=== PATIENT | female | born 1945 | race Caucasian/White ===

== ENCOUNTER 2017-10-21 13:03 | Outpatient (CLI) | payer MEDICARE, BC ==
--- NOTE | 2017-10-21 14:49 | ULT ---
RIGHT LOWER EXTREMITY VENOUS DOPPLER WITH SPECTRAL ANALYSIS AND COLOR EVALUATION: DATE: 10/21/17. HISTORY: Chronic bilateral lower extremity edema. New-onset right calf pain and redness with onset of symptom s on Wednesday. FINDINGS: Pérez scale, color flow, Doppler evaluation, and spectral analysis of the right lower extremity venous structures is performed with 2D imaging. The right lower extremity common femoral, superficial femo ral, popliteal, posterior tibial, most proximal greater saphenous and profunda femoral veins are imag ed. There is normal lumen compressibility, flow, and augmentation of the visualized deep venous structure s of the right lower extremity. IMPRESSION: No evidence of a deep vein thrombosis involving the visualized deep venous structures right lower ext remity. POS: YANDEL
== END 2017-10-21 13:04 | disposition home or self-care (01) ==
LOC: ULT 13:03
PROVIDERS: ATTEND Family Medicine
DX: I67.9 Cerebrovascular disease, unspecified (principal)

== ENCOUNTER 2017-11-11 10:08 | Outpatient (CLI) | payer MEDICARE, BC ==
--- NOTE | 2017-11-11 16:34 | HP ---
DATE OF SERVICE: 11/11/2017 HISTORY OF PRESENT ILLNESS: Ms. Smitha Rosales is a very pleasant 72- year-old who [facility] for evaluation of a lesion of the left medial lower leg subsequent to a Mohs procedure. The patient states that an area of her left medial lower leg was biopsied multiple times and returned "atypical pigmentation." Today, the patient reports erythema surrounding the surgical site. The patient states that simultaneously she underwent a Mohs procedure for a lesion of the skin of her right upper lip. Ms. Rosales reports erythema and edema of both lower extremities, which has been present for 2-3 years. She also states she has scaling of the skin of her right and left lower legs. PAST MEDICAL HISTORY: 1. Coronary artery disease. 2. Hypertension. 3. History of intracerebral bleed. 4. Osteoarthritis. 5. History of hypothyroidism. 6. History of cardiomyopathy prior to transplant. 7. History of rectal carcinoid status post removal. 8. Sigmoid diverticular disease. 9. History of TIA prior to transplant. PAST SURGICAL HISTORY: 1. Cardiac transplantation. 2. Cholecystectomy. 3. Skin carcinoma removal from the face x2. 4. Maupin teeth extraction. 5. Laparoscopy, lysis of adhesions, and bilateral salpingo-oophorectomy. 6. Incarcerated ventral hernia repair with mesh. 7. Cataract surgery of left eye. 8. Laparoscopic repair of recurrent ventral incisional hernia. MEDICATIONS: 1. Sirolimus. 2. Lasix. 3. Clonidine. 4. Aspirin. 5. Norvasc. 6. Mycophenolate mofetil. 7. Gemfibrozil. 8. Lipitor. 9. Bactrim single strength. ALLERGIES: DARVON, DARVOCET. SOCIAL HISTORY: Significant for tobacco use of 1 pack of cigarettes per day for 40 years. The patient states that she stopped smoking on 08/18/2000. Social history is negative for ETOH use. FAMILY HISTORY: Significant for coronary artery disease. The patient states that her mother and 4 brothers were all diagnosed with coronary artery disease. Family history is also significant for diabetes mellitus. The patient states that her grandfather was diagnosed with diabetes mellitus. PHYSICAL EXAMINATION: VITAL SIGNS: Temperature 97.7, pulse 105, respirations 16, blood pressure 117/ 83. GENERAL: A 72-year-old female sitting on chair in examination room in no acute distress. HEENT: Normocephalic, atraumatic. NECK: No nuchal rigidity. CHEST: Clear to auscultation. CARDIAC: Regular rate and rhythm. ABDOMEN: Soft. EXTREMITIES: No open wounds are present over the right or left lower leg. Edema and erythema of the right and left lower legs are present. The erythema of the right and left lower legs appears to be secondary to stasis changes as opposed to an infectious process. A dorsalis pedis pulse is palpable on the left. A posterior tibial pulse is palpable on the right. ASSESSMENT AND PLAN: 1. Venous peripheral insufficiency. The patient has been reassured that the lesion of the left medial lower leg subsequent to her Mohs procedure is consistent with a scar. After discussion of the options for treatment of lower extremity edema secondary to venous peripheral insufficiency, the patient wishes to be evaluated for venous ablation. Arrangements will be made for evaluation for venous ablation on the right and the left for Ms. Rosales. She will return to the [facility] as needed after evaluation and any necessary treatment is complete. Ms. Rosales understands and is in agreement with the preceding treatment plan. 2. Coronary artery disease. 3. Hypertension. 4. History of intracerebral bleed. 5. Osteoarthritis. 6. History of hypothyroidism. 7. History of cardiomyopathy prior to transplant. 8. History of rectal carcinoid status post removal. 9. Sigmoid diverticular disease. 10. History of transient ischemic attack prior to transplant. [facility]
== END 2017-11-11 10:09 | disposition home or self-care (01) ==
LOC: WCC 10:08
PROVIDERS: ATTEND Family Medicine
DX: I87.2 Venous insufficiency (chronic) (peripheral) (principal); L98.9 Disorder of the skin and subcutaneous tissue, unspecified; I25.10 Atherosclerotic heart disease of native coronary artery without angina pectoris; I10 Essential (primary) hypertension; M19.90 Unspecified osteoarthritis, unspecified site; Z86.39 Personal history of other endocrine, nutritional and metabolic disease; Z86.79 Personal history of other diseases of the circulatory system; K57.30 Diverticulosis of large intestine without perforation or abscess without bleeding; Z86.73 Personal history of transient ischemic attack (TIA), and cerebral infarction without residual deficits
CPT/HCPCS: 97139; G0463; 99203

== ENCOUNTER 2017-12-21 12:31 | Outpatient (CLI) | payer MEDICARE, BC | END 2017-12-21 12:32 | disposition home or self-care (01) | LOC: BICMAMMO 12:31 | PROVIDERS: ATTEND Family Medicine | DX: Z12.31 Encounter for screening mammogram for malignant neoplasm of breast (principal); Z80.3 Family history of malignant neoplasm of breast | CPT/HCPCS: 77063; 77067 ==

== ENCOUNTER 2018-05-17 06:23 | Day surgery (SDC) | payer MEDICARE, BC ==
--- NOTE | 2018-05-17 03:11 | HP ---
DATE OF ADMISSION: 05/17/2018 HISTORY OF PRESENT ILLNESS: This is a 72-year-old female with history of colon polyps with polypectomy. The last one was done about 5 years ago. She has history of carcinoid tumor removed f rom the colon in the past. At the present time, Ms. Rosales has no specific GI symptoms. Her meka ls are regular. No abdominal pain, no rectal bleeding. She comes in for colonoscopy because of hist ory of colon polyp. ALLERGIES: Multiple including HYDROCODONE, DARVON, TRAMADOL. SOCIAL HISTORY: The patient does not smoke or drink alcohol. PAST MEDICAL HISTORY: 1. Acute myocardial infarction, status post heart transplant more than 10 years ago. 2. Hypertension. 3. Hyperlipidemia. 4. Carcinoid tumor of colon. PHYSICAL EXAMINATION: VITAL SIGNS: Pulse is 70, blood pressure 130/70. HEENT: Conjunctivae clear. CARDIOVASCULAR: First and second heart sounds normal. LUNGS: Clear to auscultation. ABDOMEN: Soft to palpate. No organomegaly. No tenderness. No masses. ADMITTING DIAGNOSIS: Colon polyp. PLAN: Colonoscopy.
[2018-05-17] MEDS ORDERED: PROPOFOL 200 MG/20 ML VIAL ONE (13:16)
[2018-05-17] MEDS ORDERED: Lidocaine 1% PF 5 ML VIAL ONE (13:16)
--- NOTE | 2018-05-18 14:11 | OP ---
DATE OF SURGERY: 05/17/2018 OPERATIVE PROCEDURE: Colonoscopy. PREOPERATIVE DIAGNOSES: A 72-year-old female with history of colon polyp with polypectomy. She had a carcinoid tumor removal in the past. She comes for a followup colonoscopy. POSTOPERATIVE DIAGNOSES: 1. Sigmoid diverticular disease. 2. Hemorrhoids. Otherwise, normal colonoscopy. PROCEDURE NOTE: The patient was placed on her left lateral position and was given sedation by Anesth esia Department. A rectal exam was done, before scope was advanced into the rectum. No lesions felt on rectal exam. A Pentax video colonoscopy was introduced into the rectum and advanced all the way into the cecum. The prep was very good. The mucosa appeared normal. The appendiceal orifice, ileoc ecal valve, and cecum, no pathology seen. The right colon mucosa seems very friable and edematous an d erythematous. Biopsy obtained from the area. The hepatic flexure, transverse colon, splenic flexu re, descending colon, no pathology seen. The sigmoid colon showed scattered diverticulosis. The ___ _ was very large mouthed. The rectum showed hemorrhoids. DISCHARGE PLANNING: This is a 72-year-old female who came in for a colonoscopy because of previous polypectomy. She underwent colonoscopy and was found to have hemorrhoids and sigmoid divert iculosis. She had biopsy of right colon because of friable erythematous mucosa. DISCHARGE RECOMMENDATIONS: 1. Patient advised to call me, she does have abdominal pain, hematochezia. 2. In the absence of any of her symptoms, she will come back to me in 2 weeks.
== END 2018-05-17 10:10 | disposition home or self-care (01) ==
LOC: SDC 06:23
PROVIDERS: ATTEND Internal Medicine Gastroenterology
PROC: 0DJD8ZZ Inspection of Lower Intestinal Tract, Via Natural or Artificial Opening Endoscopic (ICD-10-PCS; principal; 2018-05-17)
PROC: 0DBK8ZX Excision of Ascending Colon, Via Natural or Artificial Opening Endoscopic, Diagnostic (ICD-10-PCS; 2018-05-17)
DX: Z12.11 Encounter for screening for malignant neoplasm of colon (principal); K63.5 Polyp of colon; K57.30 Diverticulosis of large intestine without perforation or abscess without bleeding; K64.9 Unspecified hemorrhoids; I25.2 Old myocardial infarction; I10 Essential (primary) hypertension; E78.5 Hyperlipidemia, unspecified; Z88.5 Allergy status to narcotic agent; Z79.899 Other long term (current) drug therapy
CPT/HCPCS: 88305; J2001; J2704

== ENCOUNTER 2018-08-25 12:46 | Outpatient (CLI) | payer MEDICARE, BC | END 2018-08-25 12:47 | disposition home or self-care (01) | LOC: DTY/OP 12:46 | PROVIDERS: ATTEND Family Medicine | DX: E11.9 Type 2 diabetes mellitus without complications (principal) | CPT/HCPCS: 97802 ==

== ENCOUNTER 2018-11-22 22:26 | Inpatient (IN) | payer MEDICARE, BC ==
[2018-11-22 22:56] LABS: Hemoglobin 14.7 g/dL (12.0-16.0); Mean Corpuscular HGB CONC 32.3 g/dL (32.0-36.0); Mean Corpuscular Hemoglobin 25.7 pg (27.0-31.0); Mean Corpuscular Volume 79.8 fL (78.0-98.0); Mean Platelet Volume 7.9 fL (7.4-10.4); Platelet Count 342 thou/uL (130-400); RBC Distribution Width 13.5 % (11.5-14.5); Red Blood Cell (RBC) Count 5.69 mill/uL (4.20-5.40); White Blood Cell (WBC) Count 18.6 thou/uL (4.8-10.8)
[2018-11-22 23:11] LABS: Band 3 % (5-11); Lymphocytes 2 % (21-51); MDiff Complete? YES; Monocytes 2 % (0-10); Neutrophil 93 % (42-75); Platelet Morphology Comment Appears Adequate; RBC Morphology Normal
--- NOTE | 2018-11-22 23:13 | RAD ---
RADIOGRAPH CHEST 1 VIEW: Date: 11/22/18 Time: 9:44 p.m. HISTORY: 73-year-old female with cough. COMPARISON: 04/12/17. FINDINGS: Again noted is the ectatic and tortuous thoracic aorta, specially the ascending aorta. New finding of curvilinear streaky densities at the left lower lobe, especially at the lateral base, representing e ither subsegmental atelectasis or scar. Another new finding of a patchy focal nodular left infrahilar density measuring approximately 1.5 cm. The rest of the visualized lung pelayo are clear. No cardiom egaly. No pulmonary edema. No pneumothorax. Sternotomy wires again noted. Previously demonstrated arnie eolar infiltrate at right lateral lung base has cleared. IMPRESSION: 1. Left infrahilar focal 1.5 cm nodular density. Possibilities include primary lung cancer versu s early pneumonia. Recommend further evaluation with chest CT, preferably with IV contrast unless con traindicated. 2. Subsegmental atelectasis versus pulmonary scar at left lower lobe. OMER [] POS: YANDEL
[2018-11-22 23:23] LABS: ALT (SGPT) 40 U/L (8-55); AST (SGOT) 69 U/L (5-34); Albumin 3.7 g/dL (3.4-4.8); Alkaline Phosphatase 100 U/L (40-150); Anion Gap 22 mmol/L (10-20); BUN (Urea Nitrogen) 24 mg/dL (9.8-20.1); CK (CPK) 42 U/L (29-168); Calc. Creatinine Clearance 0 mL/min (70-130); Calcium 9.9 mg/dL (7.8-10.44); Carbon Dioxide 18 mmol/L (23-31); Chloride 96 mmol/L (98-107); Estimated GFR-MDRD 62; Globulin 3.7 g/dL (2.4-3.5); Glucose 166 mg/dL (83-110); Protein, Total 7.4 g/dL (6.0-8.3); Sodium 133 mmol/L (136-145)
[2018-11-22 23:25] LABS: Potassium 2.8 mmol/L (3.5-5.1)
[2018-11-22 23:40] LABS: CKMB 1.1 ng/mL (0-6.6)
[2018-11-22] MEDS ORDERED: Ondansetron PF 4 MG/2 ML Vial ONE (23:49)
[2018-11-22] MEDS ORDERED: Dicyclomine 20 MG TAB ONE (23:49)
[2018-11-22 23:55] LABS: Bilirubin Moderate (Negative); Blood, Urine Moderate (Negative); Clarity CLOUDY (Clear); Glucose, Urine (Dipstick) 100 mg/dL (Negative); Leukocyte Trace (Negative); Nitrite Negative (Negative); Protein, Urine (Dipstick) 300 mg/dL (Neg-Trace); Specific Gravity, Urine 1.021 (1.002-1.036)
[2018-11-22 23:57] LABS: Bacteria/HPF None Seen HPF (None Seen); WBC/HPF 21-50 HPF (0-3)
[2018-11-22 23:58] LABS: Hyaline Casts/LPF >50 HYALINE CAST LPF (0-3 Hyaline); Pathc Cast-AUWi Flag 12.79 (0-2.49); Yeast-AUWi Flag 61.3 (0-25.0)
[2018-11-23 00:12] LABS: Other Casts/LPF 0-3 FINELY GRAN LPF (0-3 Hyaline); Yeast-All Forms None Seen HPF (None Seen)
[2018-11-23 00:13] LABS: Renal Epithelial None Seen HPF (0-3); Transitional Epithelial NONE SEEN HPF (0-3)
[2018-11-23] MEDS ORDERED: cefTRIAXone\\ROCEPHIN 1 GM VIAL ONE (01:22)
[2018-11-23] MEDS ORDERED: Aspirin 325 MG TAB ONE (01:25)
[2018-11-23] MEDS ORDERED: Enoxaparin Sodium 80 MG/0.8 ML SYRINGE ONE (01:41)
[2018-11-23] MEDS ORDERED: Azithromycin 500 MG VIAL ONE (01:41)
[2018-11-23] MEDS ORDERED: Ondansetron PF 4 MG/2 ML Vial ONE (02:29)
[2018-11-23 02:34] LABS: Troponin I 0.102 ng/mL (< 0.028)
[2018-11-23 06:10] LABS: Lactic Acid 0.9 mmol/L (0.5-2.2)
[2018-11-23 06:19] LABS: Troponin I 0.139 ng/mL (< 0.028)
--- NOTE | 2018-11-23 08:46 | CT ---
PRELIMINARY REPORT/[facility]/EMERGENTY AFTER-HOURS PROCEDURE CT Chest With Contrast EXAM DATE/TIME: 11/23/2018 12:40 AM CLINICAL HISTORY: 73 years old, female; Signs and symptoms; Cough; Prior surgery; Patient HX: Er 4; Questionable pna vs malignancy on cxr , f75 presents to the ed C/O abd discomfort and nausea onset wednesday. PT. Reports associated with productive cough and weakness due to decr. Appetite. PT. Reports she started 2.5 MG onglyza dm medication on wednesday but stopped taking them on wednesday due to nausea. PT. Denies fever, d enies cp. HX of umbilical hernia and heart transplant. TECHNIQUE: Axial computed tomography images of the chest with intravenous contrast. Coronal reformatted images were created and reviewed. COMPARISON: No relevant prior studies available. FINDINGS: Lungs: Calcified granuloma within the posterior left lower lobe. 5.6 cm focal consolidation within th e left lower lobe, most compatible with pneumonia. Pleural space: Small left pleural effusion with associated posterior atelectasis. Heart: Normal. Aorta: Atherosclerotic disease of the thoracic aorta. Dilation of the distal ascending aorta, measuri ng up to 4.8 cm in maximal diameter. No evidence of leakage or rupture. Lymph nodes: No pathologically-enlarged lymph nodes. Bones/joints: Changes of prior sternotomy. Multilevel thoracic spine degenerative changes. Soft tissues: Normal. Gallbladder and bile ducts: Gallbladder is surgically absent. Spleen: Splenic calcifications, compatible with prior granulomatous disease. Kidneys and ureters: Bilateral simple renal cysts, the largest measuring approximately 4 some meters in diameter. IMPRESSION: 1. 5.6 cm focal consolidation within the left lower lobe, most compatible with pneumonia. Recommend f ollowup. 2. Dilation of the distal ascending aorta, measuring up to 4.8 cm in maximal diameter. No evidence of leakage or rupture. Thank you for allowing us to participate in the care of your patient. Dictated and Authenticated by: Adebayo Daly MD 11/23/2018 1:07 AM Central Time ([place] & [place]) FINAL REPORT CHEST CT WITH CONTRAST: HISTORY: Pneumonia versus mass in the left perihilar region, noted n recent radiograph. COMPARISON: None. CORRELATION: Single view chest 11/22/2018. TECHNIQUE: Chest CT is performed with contrast. Coronal reformatted images are submitted. FINDINGS: This report is in agreement with the preliminary report by [facility]. There is consolidation with air bron chograms in the left lower lobe, most compatible with pneumonia. Continued surveillance and followup is recommended. There is dilatation of the ascending aorta as described in the preliminary report b y [facility]. No evidence of aneurysm or rupture. Multiple hypodensities in the left kidney have been prev iously demonstrated to be a cyst on a stone protocol from June 09, 2011. Probable complex cyst. Co nfirmation with nonemergent renal ultrasound. Surgically absent gallbladder. CODE T POS: YANDEL
[2018-11-23] MEDS ORDERED: ISOVUE-370 76%-LOCM 1 ML ONE (11:29)
[2018-11-23] MEDS ORDERED: hydrALAZINE 20 MG/ML VIAL SLOW IVP PRN (13:46)
[2018-11-23] MEDS ORDERED: Ondansetron ODT 4 MG TAB PO PRN (13:46)
[2018-11-23] MEDS ORDERED: Ondansetron PF 4 MG/2 ML Vial IVP PRN (13:46)
[2018-11-23] MEDS ORDERED: Diabetic Tussin 200 MG/10 ML UDCUP PO PRN (13:46)
[2018-11-23] MEDS ORDERED: Acetaminophen 500 MG TAB PO PRN (13:46)
[2018-11-23 13:54] VITALS: BMI 25.4
[2018-11-23] MEDS: Gemfibrozil 600 MG TAB PO SCH (16:04)
[2018-11-23] MEDS ORDERED: Dextrose 5% in Water 1,000 ML IV PRN (19:21)
[2018-11-23] MEDS ORDERED: Dextrose 50% Abboject 50 ML SYRINGE IVP PRN (19:21)
[2018-11-23] MEDS ORDERED: HumaLOG 300 UNITS/3 ML VIAL SC PRN ×2 (19:21)
--- NOTE | 2018-11-23 19:31 | HP ---
PRIMARY CARE PROVIDER: Dr. Rayray Michelle. CHIEF COMPLAINT: Nausea and shortness of breath. HISTORY OF PRESENT ILLNESS: This is a 73-year-old female with a significant history of a prior cardiac transplant in 2000, on chronic immunosuppressive therapy, complaining of increased cough, shortness of breath, and nausea. The patient states her symptoms began in the last 2 to 3 days, persisting in the last 24 hours. The patient does admit to a history of pneumonia diagnosed in 2016, but does state that her pneumonia vaccination is current. The patient admits to some exposure to grandchildren, who may have been ill. The patient states she has been compliant with her chronic medication regimen and has taken glwa-eeo-[id number] cold medicine for minimal relief. The patient denied any documented fever, hemoptysis, but does state productive cough in the last 24 hours. The patient denied any chest or back pain or dysuria. In the emergency room, the patient underwent general evaluation including chest x-ray and CT imaging of the chest showing evidence of left lower lobe pneumonia. The patient received IV fluids, Rocephin, Zithromax as well as Bentyl, potassium chloride, and Zofran. The patient also received aspirin 325 mg and Lovenox after metabolic panel showed elevated troponin I. The patient denies any jaw, chest pain, or left arm discomfort. The patient was noted with sepsis criteria with elevated lactic acid level, white blood cell count elevation, and sinus tachycardia. PAST MEDICAL HISTORY: 1. Status post cardiac transplant in 2000, on chronic immunosuppressive therapy. 2. Dyslipidemia. 3. Hypertension. 4. Rectal carcinoid tumor. 5. History of urinary tract infection in 2016. 6. History of pneumonia in 2016. PAST SURGICAL HISTORY: 1. Status post cardiac transplant in 2000. 2. Status post cholecystectomy. 3. Status post laparoscopic bilateral salpingo-oophorectomy. 4. Status post incarcerated umbilical hernia repair. 5. Status post colonoscopy with diverticular disease of the sigmoid colon. CURRENT MEDICATIONS: 1. Norvasc 5 mg p.o. daily. 2. Lipitor 40 mg p.o. daily. 3. Clonidine 0.3 mg p.o. daily. 4. Lasix 20 mg p.o. daily. 5. Lopid 600 mg p.o. b.i.d. 6. CellCept 250 mg p.o. b.i.d. 7. Sirolimus 1 mg p.o. daily. 8. Bactrim 1 tablet p.o. daily. ALLERGIES: ALLERGIES TO PROPOXYPHENE, HYDROCODONE, AND TRAMADOL. FAMILY HISTORY: Positive for coronary artery disease. SOCIAL HISTORY: The patient resides in the [facility] area. No current alcohol, tobacco, or illicit drug use. Resides independently and makes her own decisions. Functional of all activities of daily living. REVIEW OF SYSTEMS: CONSTITUTIONAL: Negative for weight loss or gain, ability to conduct usual activities. SKIN: Negative for rash, itching. EYES: Negative for double vision, pain. ENT/MOUTH: Negative for nose bleeding, neck stiffness, pain, tenderness. CARDIOVASCULAR: Negative for palpitations, dyspnea on exertion, orthopnea. RESPIRATORY: Negative for shortness of breath, wheezing, cough, hemoptysis, fever or night sweats. GASTROINTESTINAL: Negative for poor appetite, abdominal pain, heartburn, nausea, vomiting, constipation, or diarrhea. GENITOURINARY: Negative for urgency, frequency, dysuria, nocturia. MUSCULOSKELETAL: Negative for pain, swelling. NEUROLOGIC/PSYCHIATRIC: Negative for anxiety, depression. ALLERGY/IMMUNOLOGIC: Negative for skin rash, bleeding tendency. Otherwise negative except as stated per HPI. PHYSICAL EXAMINATION: VITAL SIGNS: On admission; blood pressure 118/80, pulse 121, respiratory rate 17, temperature 98.6 degrees Fahrenheit, O2 saturation 94% on room air. GENERAL APPEARANCE: This is a 73-year-old female, alert and oriented x3, pleasant, conversant, in no acute distress. HEENT: Pupils are equal, round, reactive to light and accommodation. Extraocular muscles are intact. No scleral icterus. No conjunctival injection. Nares patent. OP is clear. Teeth in good repair. NECK: Supple. No cervical adenopathy. No thyromegaly. No carotid bruits. No JVD appreciated. Cervical spine with full active and passive range of motion. No meningeal signs noted. CHEST: Diminished breath sounds in the bases bilaterally with coarse breath sounds, left greater than right lung pelayo. CARDIOVASCULAR: S1 and S2 without noted murmur, rub, or gallop. ABDOMEN: Rounded, soft, nontender, nondistended. Bowel sounds are positive in all 4 quadrants. There is no hepatosplenomegaly. No abdominal bruits. No rebound or guarding appreciated. EXTREMITIES: Warm and dry with fair turgor. No clubbing, cyanosis, or asymmetric edema appreciated. Pulses are palpable distally at the dorsalis pedis, posterior tibial, and popliteal arteries bilaterally. Capillary refill less than 2 seconds. NEUROLOGIC: Cranial nerves 2 through 12 are grossly intact. No focal or lateralizing signs appreciated. PERTINENT LAB AND X-RAY FINDINGS: Sodium 133, potassium 2.8, chloride 96, CO2 of 18, BUN 24, creatinine 0.89. Lactic acid level ranged between 0.9 to 2.6. AST 69, ALT of 40, alkaline phosphatase 100. Troponin I ranged between 0.102 to 0.139. Lipase at 15. CBC showed a white blood cell count of 18.6, hemoglobin 14.7, hematocrit 45, platelet count 242, with 93% neutrophilia. Urinalysis showed trace leukocyte esterase, moderate blood with greater than 50 to vzl-skqpfuog-yf-count squamous cells. Portable chest x-ray dated on 11/22/2018 showed left infrahilar focal density 1.5 cm. Subsegmental atelectasis to the left lung base. CT of the chest dated on 11/23/2018 showed 5.6-cm focal consolidation in the left lower lobe compatible with pneumonia. EKG dated on 11/22/2018 by my interpretation shows sinus tachycardia with heart rates in the 110s. Normal R-wave progression noted in the precordial leads. Complete right bundle-branch block pattern noted. ASSESSMENT AND PLAN: 1. Community-acquired bacterial pneumonia, left lower lobe. The patient will be admitted to the telemetry unit. We will continue Levaquin 750 mg IV daily. Add DuoNeb q.4 hours. Update pneumonia vaccination prior to discharge. We will continue general pulmonary supportive management. Oxygen p.r.n. Mucolytics as needed. 2. Sepsis secondary to #1. The patient meets sepsis criteria in conjunction with elevated lactic acid level, leukocytosis, and tachycardia. We will continue treatment as outlined in #1. The patient received initial IV fluid resuscitation in the emergency department. 3. Demand ischemia of the myocardium. Suspect demand ischemic state in the context of #1 and #2. We will continue supportive management. Continue aspirin 325 mg daily. No current evidence to suggest acute coronary syndrome. 4. Hypokalemia. We will provide potassium supplementation and repeat potassium level in the a.m. 5. Chronic immunosuppression. We will continue supportive management. Resume home regimen to include CellCept and sirolimus. 6. Prophylaxis. SCDs while in bed. Pepcid 20 mg p.o. b.i.d. CODE STATUS: Full. Surrogate medical decision maker not identified, the patient makes own decisions and did not identify a surrogate. Job ID: [id number]
[2018-11-23] MEDS: Famotidine 20 MG TAB PO SCH (20:44)
[2018-11-23] MEDS: Mycophenolate 250 MG CAP PO SCH (20:44)
[2018-11-23] MEDS: Benzonatate 100 MG CAP PO PRN (20:54)
[2018-11-24 05:23] LABS: Band 12 % (5-11); Hemoglobin 12.2 g/dL (12.0-16.0); Lymphocytes 4 % (21-51); MDiff Complete? YES; Mean Corpuscular HGB CONC 32.4 g/dL (32.0-36.0); Mean Corpuscular Hemoglobin 26.2 pg (27.0-31.0); Mean Corpuscular Volume 80.8 fL (78.0-98.0); Mean Platelet Volume 7.9 fL (7.4-10.4); Monocytes 11 % (0-10); Neutrophil 73 % (42-75); Platelet Count 275 thou/uL (130-400); Platelet Morphology Comment Appears Adequate; RBC Distribution Width 13.4 % (11.5-14.5); Red Blood Cell (RBC) Count 4.64 mill/uL (4.20-5.40)
[2018-11-24 05:41] LABS: Anion Gap 14 mmol/L (10-20); BUN (Urea Nitrogen) 13 mg/dL (9.8-20.1); Calc. Creatinine Clearance 88 mL/min (70-130); Calcium 8.8 mg/dL (7.8-10.44); Carbon Dioxide 22 mmol/L (23-31); Chloride 102 mmol/L (98-107); Estimated GFR-MDRD Greater than 90; Glucose 142 mg/dL (83-110); Sodium 136 mmol/L (136-145)
[2018-11-24 05:47] LABS: Potassium 2.3 mmol/L (3.5-5.1)
[2018-11-24] MEDS: Potassium Chloride 20 MEQ TAB PO SCH ×4 (06:20→16:48)
[2018-11-24] MEDS: Benzonatate 100 MG CAP PO PRN ×2 (06:24→20:29)
[2018-11-24] MEDS: Furosemide 20 MG TAB PO SCH (08:50)
[2018-11-24] MEDS: Gemfibrozil 600 MG TAB PO SCH ×2 (08:50→16:49)
[2018-11-24] MEDS: Atorvastatin Calcium 40 MG TAB PO SCH (08:50)
[2018-11-24] MEDS: Famotidine 20 MG TAB PO SCH ×2 (08:51→20:29)
[2018-11-24] MEDS: Mycophenolate 250 MG CAP PO SCH ×2 (08:51→20:29)
[2018-11-24] MEDS: Amlodipine 5 MG TAB PO SCH (08:51)
--- NOTE | 2018-11-24 13:36 | PDOC.PN ---
- Subjective Encounter Start Date: 11/24/18 Encounter Start Time: 13:30 Subjective: f/u for sepsis secondary to LLL PNA on current Levaquin. Feels better -: overall but still weak. No fever. - Objective Resuscitation Status - Order Detail: 11/23/18 12:22 Resuscitation Status Routine Resuscitation Status: FULL: Full Resuscitation MAR Reviewed: Yes Vital Signs & Weight: Vital Signs (12 hours) Temp Pulse Resp BP Pulse Ox 11/24/18 09:52 99 16 93 L 11/24/18 08:51 113 H 11/24/18 08:00 97.5 F L 113 H 17 101/68 93 L 11/24/18 07:09 101 H 16 93 L 11/24/18 03:30 99.5 F 113 H 24 H 129/76 94 L 11/24/18 02:07 107 H 16 93 L Weight Weight 148 lb 3.2 oz I&O: 11/23/18 11/24/18 11/25/18 06:59 06:59 06:59 Intake Total 610 Output Total 350 Balance 260 Result Diagrams: 11/24/18 04:35 11/24/18 04:35 Additional Labs: Accuchecks 11/24/18 11/24/18 11/23/18 10:35 05:37 20:34 POC Glucose 177 H 144 H 177 H 11/23/18 16:46 POC Glucose 184 H Microbiology 11/23/18 01:30 Venous blood - Right Hand Blood Culture - Preliminary Specimen has been received and culture in progress. No Growth to date. 11/23/18 01:27 Venous blood - Left Hand Blood Culture - Preliminary Specimen has been received and culture in progress. No Growth to date. 11/22/18 23:45 Urine voided Urine Culture - Preliminary NO GROWTH AT 12 HOURS Laboratory Tests 11/22/18 11/22/18 11/22/18 22:47 22:47 22:47 WBC 18.6 H Neutrophils % (Manual) 93 H Band Neuts % (Manual) 3 L Potassium 2.8 L* Lactic Acid Troponin I 0.117 H 11/23/18 11/23/18 11/23/18 01:26 02:02 05:00 WBC Neutrophils % (Manual) Band Neuts % (Manual) Potassium Lactic Acid 2.6 H Troponin I 0.102 H 0.139 H 11/23/18 11/24/18 05:00 04:35 WBC Neutrophils % (Manual) 73 Band Neuts % (Manual) 12 H Potassium Lactic Acid 0.9 Troponin I EKG Reviewed by me: Yes (Tele - sinus tachycardia in low 100's) Phys Exam - Physical Examination Constitutional: NAD HEENT: PERRLA, sclera anicteric, oral pharynx no lesions Neck: no nodes, no JVD, supple, full ROM coarse sounds in L field S1, S2 Cardiovascular: RRR, no significant murmur, no rub, gallop Gastrointestinal: soft, non-tender, no distention, positive bowel sounds Musculoskeletal: no edema, pulses present Neurological: normal sensation, moves all 4 limbs Psychiatric: normal affect, A&O x 3 Skin: normal turgor, cap refill <2 seconds Dx/Plan (1) Pneumonia, bacterial Code(s): J15.9 - UNSPECIFIED BACTERIAL PNEUMONIA Status: Acute Comment: LLL involvement, continue Levaquin, Duonebs, suspect gm + cocci (2) Sepsis Code(s): A41.9 - SEPSIS, UNSPECIFIED ORGANISM Status: Acute Comment: Secondary to PNA, continue Levaquin, initial blood cx negative x 2 (3) Demand ischemia of myocardium Code(s): I24.8 - OTHER FORMS OF ACUTE ISCHEMIC HEART DISEASE Status: Acute Comment: Secondary to #1, #2, supportive mgmt (4) Hypokalemia Code(s): E87.6 - HYPOKALEMIA Status: Acute Comment: KCL supplementation, repeat K+ level in am (5) Immunosuppression due to drug therapy Code(s): Z79.899 - OTHER HALF-WAY (CURRENT) DRUG THERAPY Status: Chronic Comment: Continue Cellcept, Sirolimus - Plan continue antibiotics, licensed clinical social worker, respiratory therapy, out of bed/ambulate , DVT proph w/SCDs Stable overall -: Continue Levaquin 750mg IV daily -: Bronchodilator therapy with Duonebs -: KCL supplementation -: AM lab: BMP, CBC * .
[2018-11-25 05:33] LABS: Anion Gap 12 mmol/L (10-20); BUN (Urea Nitrogen) 10 mg/dL (9.8-20.1); Calc. Creatinine Clearance 78 mL/min (70-130); Calcium 8.9 mg/dL (7.8-10.44); Carbon Dioxide 26 mmol/L (23-31); Chloride 101 mmol/L (98-107); Estimated GFR-MDRD 87; Glucose 149 mg/dL (83-110); Potassium 3.7 mmol/L (3.5-5.1); Sodium 135 mmol/L (136-145)
[2018-11-25 05:50] LABS: Band 16 % (5-11); Hemoglobin 12.4 g/dL (12.0-16.0); Lymphocytes 4 % (21-51); MDiff Complete? YES; Mean Corpuscular HGB CONC 32.3 g/dL (32.0-36.0); Mean Corpuscular Hemoglobin 26.6 pg (27.0-31.0); Mean Corpuscular Volume 82.4 fL (78.0-98.0); Mean Platelet Volume 7.9 fL (7.4-10.4); Monocytes 12 % (0-10); Neutrophil 68 % (42-75); Platelet Count 303 thou/uL (130-400); RBC Distribution Width 13.7 % (11.5-14.5); Red Blood Cell (RBC) Count 4.66 mill/uL (4.20-5.40); White Blood Cell (WBC) Count 12.7 thou/uL (4.8-10.8)
[2018-11-25] MEDS: Atorvastatin Calcium 40 MG TAB PO SCH (08:25)
[2018-11-25] MEDS: Furosemide 20 MG TAB PO SCH (08:25)
[2018-11-25] MEDS: Mycophenolate 250 MG CAP PO SCH (08:25)
[2018-11-25] MEDS: Amlodipine 5 MG TAB PO SCH (08:25)
[2018-11-25] MEDS: Gemfibrozil 600 MG TAB PO SCH (08:25)
[2018-11-25] MEDS: Famotidine 20 MG TAB PO SCH (08:25)
[2018-11-25] MEDS: Potassium Chloride 20 MEQ TAB PO SCH (08:25)
[2018-11-25] MEDS: Benzonatate 100 MG CAP PO PRN (08:33)
[2018-11-25] MEDS ORDERED: cloNIDine 0.3 MG TAB PO SCH (11:00)
[2018-11-25 12:12] VITALS: BP 112/72; TEMP 98.2
[2018-11-25] MEDS ORDERED: Sulfameth/Trimethoprim SS 400-80MG TAB PO SCH (21:00)
--- NOTE | 2018-11-26 02:58 | DIS ---
DATE OF ADMISSION: 11/23/2018 DATE OF DISCHARGE: 11/25/2018 DISCHARGE DIAGNOSES: 1. Left lower lobe community-acquired bacterial pneumonia, suspected gram-positive cocci. 2. Sepsis secondarily to #1, resolved. 3. Demand ischemia of the myocardium, stable. 4. Hypokalemia, resolved. 5. Immunosuppression due to drug therapy with CellCept and sirolimus. CONSULTATIONS: None. PERTINENT LAB AND X-RAY FINDINGS: Potassium ranged between 2.3 to 3.7. Lactic acid level ranged between 0.9 to 2.6. Troponin I ranged between 0.102 to 0.139. CBC showed a white blood cell count ranged between 12.0 to 18.6. Urine culture dated 11/22/2018, showed 10,000 to 25,000 colonies of mixed skin and enteric myah. Blood cultures x2 dated 11/23/2018 showed no growth to date. Portable chest x-ray dated 11/22/2018 showed a left infrahilar focal density 1.5 cm with associated subsegmental atelectasis of the left lower lobe. CT of the chest dated 11/23/2018 showed focal consolidation in the left lower lobe compatible with pneumonia. 2D transthoracic echocardiogram dated 11/23/2018 showed ejection fraction of 55% to 60%. Mild mitral and tricuspid regurgitation. [id number] left atrial enlargement. HOSPITAL COURSE: The patient was admitted to the telemetry unit after initially presenting with nausea and shortness of breath with chest imaging showing evidence of left lower lobe pneumonia. The patient was placed on IV Levaquin after initially receiving Rocephin and Zithromax in the emergency department. The patient continued on IV Levaquin throughout the hospital course with overall clinical improvement and stabilization. The patient did meet sepsis criteria at the time of admission. With supportive management, resolving sepsis prior to discharge. The patient received potassium supplementation due to hypokalemia with overall correction prior to discharge. The patient was noted with sinus tachycardia on telemetry monitoring, likely secondary to chronic clonidine that was held due to mild hypotension at the time of admission. The patient's clonidine was resumed prior to discharge and the patient remained clinically stable for the remainder of the hospital course. I have examined the patient at the time of discharge and discussed followup instructions. The patient overall is clinically stable and ready for discharge on 11/25/2018. DISCHARGE MEDICATIONS: 1. Amlodipine 5 mg p.o. daily. 2. Enteric-coated aspirin 81 mg p.o. daily. 3. Lipitor 40 mg p.o. at bedtime. 4. Clonidine 0.3 mg p.o. daily. 5. Lasix 20 mg p.o. daily. 6. Lopid 600 mg p.o. b.i.d. 7. CellCept 500 mg p.o. b.i.d. 8. Sirolimus 1 mg p.o. daily. 9. Bactrim single strength 400 mg p.o. at bedtime. 10. Albuterol sulfate 2 puffs inhaled q.6 hours p.r.n. 11. Tessalon Perles 100 mg p.o. q.6 hours p.r.n. cough. 12. Levaquin 750 mg p.o. daily x10 days. FOLLOWUP: The patient may follow up with her primary care provider, Dr. Rayray Michelle within 7 days of discharge. CONDITION ON DISCHARGE: Stable. ACTIVITY: Ad johana. DIET: Heart healthy. CODE STATUS: Full. DISPOSITION: Home, 11/25/2018. TIME SPENT: Total time preparing and coordinating discharge 34 minutes. Job ID: [id number]
[2018-11-26] MEDS ORDERED: cloNIDine 0.3 MG TAB PO SCH ×2 (09:00)
== END 2018-11-25 14:24 | disposition home or self-care (01) | DRG 871 ==
LOC: ERS 22:26 → 2NO 11-23 01:58 → ERHOLD 11-23 02:09 → 2NO 11-23 13:42
PROVIDERS: ADMIT Hospitalist; ATTEND Hospitalist
DX: A41.89 Other specified sepsis (principal); J15.9 Unspecified bacterial pneumonia; Z94.1 Heart transplant status; I24.8 Other forms of acute ischemic heart disease; E78.5 Hyperlipidemia, unspecified; I10 Essential (primary) hypertension; E87.6 Hypokalemia; I25.2 Old myocardial infarction; Z86.73 Personal history of transient ischemic attack (TIA), and cerebral infarction without residual deficits; Z87.440 Personal history of urinary (tract) infections; Z90.49 Acquired absence of other specified parts of digestive tract; Z98.890 Other specified postprocedural states; Z90.722 Acquired absence of ovaries, bilateral; Z79.899 Other long term (current) drug therapy; Z88.5 Allergy status to narcotic agent; Z88.8 Allergy status to other drugs, medicaments and biological substances
CPT/HCPCS: 36415; 36416; 71045; 71260; 80048; 80053; 81003; 81015; 82550; 82553; 83605; 83690; 84484; 85007; 85025; 85027; 87040; 87086; 93005; 93306; 94640; 96361; 96365; 96367; 96372; 96375; J0456; J0696; J1650; J1956; J2405; J7517; J7520; J7620

== ENCOUNTER 2019-03-21 12:41 | Outpatient (CLI) | payer MEDICARE, BC ==
--- NOTE | 2019-03-21 13:35 | MMO ---
Bilateral MAMMO Bilat Screen [facility]. CLINICAL HISTORY: Patient is 73 years old and is seen for screening. The patient has the following family history of breast cancer: sister, at age 56. The patient has no personal history of cancer. VIEWS: The views performed were: bilateral craniocaudal with tomosynthesis; bilateral mediolateral oblique with tomosynthesis; and left mediolateral oblique. FILMS COMPARED: The present examination has been compared to prior imaging studies performed at [facility] on 12/21/2017, and at [facility] on 06/25/2010, 06/26/2011, 04/04/2013 and 05/15/2016. MAMMOGRAM FINDINGS: There are scattered fibroglandular densities. There are benign appearing calcifications seen in both breasts. There are also vascular calcifications. There are no suspicious masses, suspicious calcifications, or new areas of architectural distortion. IMPRESSION: THERE IS NO MAMMOGRAPHIC EVIDENCE OF MALIGNANCY. A ROUTINE FOLLOW-UP MAMMOGRAM IN 1 YEAR IS RECOMMENDED. THE RESULTS OF THIS EXAM WERE SENT TO THE PATIENT. ACR BI-RADS Category 2 - Benign finding MAMMOGRAPHY NOTE: 1. A negative mammogram report should not delay a biopsy if a dominant of clinically suspicious mass is present. 2. Approximately 10% to 15% of breast cancers are not detected by mammography. 3. Adenosis and dense breasts may obscure an underlying neoplasm.
== END 2019-03-21 12:42 | disposition home or self-care (01) ==
LOC: BICMAMMO 12:41
PROVIDERS: ATTEND Family Medicine
DX: Z12.31 Encounter for screening mammogram for malignant neoplasm of breast (principal); Z80.3 Family history of malignant neoplasm of breast
CPT/HCPCS: 77063; 77067

== ENCOUNTER 2021-11-30 06:14 | Emergency (ER) | payer MEDICARE, BC ==
[2021-11-30 07:42] LABS: Hemoglobin 12.5 g/dL (12.0-16.0); Mean Corpuscular Hemoglobin 26.1 pg (27.0-31.0); Mean Corpuscular Volume 81.6 fL (78.0-98.0); RBC Distribution Width 14.3 % (11.5-14.5); White Blood Cell (WBC) Count 4.1 thou/uL (4.8-10.8)
[2021-11-30 07:57] LABS: ALT (SGPT) 24 U/L (8-55); AST (SGOT) 53 U/L (5-34); Albumin 3.7 g/dL (3.4-4.8); Alkaline Phosphatase 85 U/L (40-110); Anion Gap 17 mmol/L (10-20); BUN (Urea Nitrogen) 23 mg/dL (9.8-20.1); Bilirubin, Total 0.8 mg/dL (0.2-1.2); Calc. Creatinine Clearance 0 mL/min (70-130); Calcium 9.1 mg/dL (7.8-10.44); Carbon Dioxide 23 mmol/L (23-31); Chloride 99 mmol/L (98-107); Globulin 2.4 g/dL (2.4-3.5); Glucose 181 mg/dL (83-110); Lipase 35 U/L (8-78); Potassium 3.4 mmol/L (3.5-5.1); Protein, Total 6.1 g/dL (5.8-8.1); Sodium 136 mmol/L (136-145)
[2021-11-30 07:59] LABS: #Lymphocytes 0.3 thou/uL (1.20-3.40); #Monocytes 0.4 thou/uL (0.11-0.59); #Neutrophils 3.5 thou/uL (1.40-6.50); %Basophils 0.3 % (0.0-1.0); %Eosinophils 0.5 % (0.0-10.0); %Lymphocytes 6.2 % (21.0-51.0); %Monocytes 8.6 % (0.0-10.0); %Neutrophils 84.5 % (42.0-75.0); Mean Platelet Volume 8.8 fL (7.4-10.4); Platelet Count 94 thou/uL (130-400); Platelet Morphology Comment Appears Decreased; RBC Morphology Normal
[2021-11-30 08:49] LABS: CKMB 8.4 ng/mL (0-6.6)
[2021-11-30 11:12] LABS: SARS-CoV-2 NAA Rapid Test DETECTED (NotDetected)
[2021-11-30] MEDS ORDERED: Heparin 25,000 units/D5W 500 ML ONE (12:13)
[2021-11-30] MEDS ORDERED: Heparin 10,000 UNITS/ 10 ML VIAL ONE ×2 (12:13→13:05)
[2021-11-30 13:19] LABS: CKMB 10.7 ng/mL (0-6.6)
[2021-11-30] MEDS ORDERED: Clopidogrel Bisulfate 300 MG TAB PO SCH (14:30)
[2021-11-30] MEDS ORDERED: Nitroglycerin 2% Ointment 1 INCH/1 GM Packet ONE (16:54)
[2021-11-30 18:27] LABS: Bilirubin Negative (Negative); Blood, Urine Trace (Negative); Glucose, Urine (Dipstick) Negative (Negative); Ketone, Urine Negative (Negative); Leukocyte Negative (Negative); Nitrite Negative (Negative); Protein, Urine (Dipstick) 30 mg/dL (Neg-Trace); Specific Gravity, Urine 1.025 (1.005-1.030); Urobilinogen 0.2 mg/dL (Less than 2)
[2021-11-30 18:31] LABS: Clarity Clear (Clear); RBC/HPF 0-3 HPF (0-3); WBC/HPF 0-3 HPF (0-3)
[2021-11-30 19:23] LABS: PTT 144.8 sec (22.9-36.1)
[2021-11-30] MEDS ORDERED: Nitroglycerin 2% Ointment 1 INCH/1 GM Packet TOP SCH (22:00)
== END 2021-11-30 21:10 | disposition short-term general hospital (02) ==
LOC: ERS 06:14
DX: U07.1 COVID-19 (principal); R77.8 Other specified abnormalities of plasma proteins; I10 Essential (primary) hypertension; E78.5 Hyperlipidemia, unspecified; I25.2 Old myocardial infarction; Z86.73 Personal history of transient ischemic attack (TIA), and cerebral infarction without residual deficits; Z79.899 Other long term (current) drug therapy
CPT/HCPCS: 71045; 80053; 82553; 83690; 84484 ×2; 85025; 85730 ×2; 93005; 93306; U0002; 36415; 81003; 81015; 96374; J1644

== ENCOUNTER 2023-04-22 12:54 | Emergency (ER) | payer MEDICARE, BC ==
[2023-04-22 14:18] LABS: #Monocytes 0.8 thou/uL (0.11-0.59); #Neutrophils 8.3 thou/uL (1.40-6.50); %Basophils 0.4 % (0.0-1.0); %Lymphocytes 9.1 % (21.0-51.0); %Monocytes 8.1 % (0.0-10.0); %Neutrophils 80.8 % (42.0-75.0); Hemoglobin 11.9 g/dL (12.0-16.0); Mean Corpuscular HGB CONC 30.8 g/dL (32.0-36.0); Mean Corpuscular Hemoglobin 26.9 pg (27.0-31.0); Mean Corpuscular Volume 87.3 fl (78.0-98.0); Mean Platelet Volume 9.7 fL (7.4-10.4); Platelet Count 181 10x3/uL (130-400); Red Blood Cell (RBC) Count 4.42 mill/uL (4.20-5.40); White Blood Cell (WBC) Count 10.3 10x3/uL (4.8-10.8)
[2023-04-22] MEDS ORDERED: Ondansetron PF 4 MG/2 ML Vial ONE ×2 (14:20→16:42)
[2023-04-22 14:42] LABS: ALT (SGPT) 26 U/L (8-55); AST (SGOT) 43 U/L (5-34); Albumin 4.3 g/dL (3.4-4.8); Alkaline Phosphatase 68 U/L (40-110); Anion Gap 19 mmol/L (10-20); BUN (Urea Nitrogen) 33 mg/dL (9.8-20.1); Bilirubin, Total 0.5 mg/dL (0.2-1.2); CK (CPK) 114 U/L (29-168); Calc. Creatinine Clearance 0 mL/min (70-130); Calcium 9.9 mg/dL (7.8-10.44); Carbon Dioxide 20 mmol/L (23-31); Chloride 103 mmol/L (98-107); Estimated GFR 24; Globulin 2.5 g/dL (2.4-3.5); Glucose 176 mg/dL (83-110); Lipase 41 U/L (8-78); Potassium 4.4 mmol/L (3.5-5.1); Protein, Total 6.8 g/dL (5.8-8.1); Sodium 138 mmol/L (136-145)
[2023-04-22] MEDS ORDERED: fentaNYL 50 mcg/mL 1 mL Vial ONE (15:03)
[2023-04-22 15:10] LABS: CKMB 8.9 ng/mL (0-6.6)
[2023-04-22] MEDS ORDERED: Cefepime 2 GM VIAL ONE (15:33)
[2023-04-22] MEDS ORDERED: Vancomycin 1 GM/200 ML (FROZEN) BAG ONE (15:48)
[2023-04-22] MEDS ORDERED: DOPamine 400 MG/D5W 250 ML 250 ML ONE (16:15)
[2023-04-22 16:24] LABS: Actual Bicarbonate (HCO3v) 16.1 mEq/L (22-28); Analyzer IN Cardio ER; Base Excess -11.2 mEq/L (-2.0 to +3.0); Calcium, Ionized (venous) 1.02 mmol/L (1.16-1.32); Chloride (VBG) 105 mmol/L (98-106); Hematocrit-VBG 38 % (36.0-47.0); Hemoglobin (Hb) 12.9 g/dL (11.7-16.1); Potassium (VBG) 4.64 mmol/L (3.70-5.30); Sodium 128.6 mmol/L (133-146)
[2023-04-22 16:25] LABS: Bilirubin Negative (Negative); Blood, Urine 1+ (Negative); CAUTI Indications for Culture Pelvic or flank pain; Clarity Turbid (Clear); Glucose, Urine (Dipstick) 200 mg/dL (Negative); Ketone, Urine Negative (Negative); Leukocyte Negative Leu/uL (Negative); Nitrite Negative (Negative); Protein, Urine (Dipstick) 600 mg/dL (Neg-Trace); RBC/HPF 0-3 HPF (0-3); Specific Gravity, Urine 1.024 (1.002-1.036); Squamous Epithelial 0-3 HPF (0-3); Urobilinogen Normal mg/dL (Less than 2)
[2023-04-22] MEDS ORDERED: Famotidine/PF 20 mg/2ml Vial ONE (16:31)
[2023-04-22] MEDS ORDERED: methylPREDNISolone Sod Succ/PF 125 MG/2 ML VIAL ONE (16:31)
[2023-04-22] MEDS ORDERED: diphenhydrAMINE 50 MG/ML VIAL ONE (16:31)
[2023-04-22 16:32] LABS: pH (venous) 7.209 (7.32-7.43)
[2023-04-22 16:46] LABS: Transitional Epithelial 0-3 HPF (None Seen); WBC/HPF 0-3 HPF (0-3)
[2023-04-22 16:47] LABS: Bacteria/HPF Rare-Few HPF (None Seen)
[2023-04-22 16:48] LABS: Urine Culture Reflex No No
[2023-04-22 18:01] LABS: Lactic Acid 4.6 mmol/L (0.5-2.2)
[2023-04-22] MEDS ORDERED: Aspirin Chewable 81 MG TAB ONE (20:16)
[2023-04-22 20:21] LABS: CKMB 48.9 ng/mL (0-6.6)
[2023-04-22 21:34] LABS: INR-International Normal Ratio 1.2; PTT 26.8 sec (22.9-36.1); Prothrombin Time 16.1 sec (12.0-14.7)
[2023-04-22] MEDS ORDERED: Heparin 10,000 UNITS/ 10 ML VIAL ONE (21:51)
[2023-04-22] MEDS ORDERED: Heparin 25,000 units/D5W 500 ML ONE (21:52)
== END 2023-04-22 23:04 | disposition short-term general hospital (02) ==
LOC: ERS 12:54
DX: R00.1 Bradycardia, unspecified (principal); R19.7 Diarrhea, unspecified; I21.4 Non-ST elevation (NSTEMI) myocardial infarction; R11.10 Vomiting, unspecified; E78.5 Hyperlipidemia, unspecified; Z79.899 Other long term (current) drug therapy
CPT/HCPCS: 71045; 80053; 81001; 82550; 82553; 82805; 83605; 83690; 83735; 83880; 84484 ×2; 85025; 85610; 85730; 87040; 93005; J3010; J3370; 36415; 36556; 51701; 96361; 96365; 96367; 96374; 96375; 96376; J0692; J1200; J1265; J1644; J2405; J2930; S0028